=== PATIENT | male | born 1980 ===

== ENCOUNTER 2017-03-22 04:34 | Emergency (ER) | payer OTHER, BC ==
--- NOTE | 2017-03-22 04:41 | EDM.PDOC ---
ED HPI GENERAL MEDICAL PROBLEM - General Chief Complaint: Laceration Stated Complaint: cut off tips of ring and little finger Time Seen by Provider: 03/22/17 04:34 Source of Information: Reports: Patient History Limitations: Reports: No Limitations - History of Present Illness INITIAL COMMENTS - FREE TEXT/NARRATIVE: This patient is a 37 year old male that presents to the ER. Patient reports he was working at the [employer] this morning when he amputated his distal 4th and 5th phalanges of the right hand. The patient got them amputated using the dry chain sprocket. Patient denies any other injuries. Patient has sensation at the digits with numbness and throbbing per patient. Patient is able to have flexion and extension of the digits portion that remains. Onset: Today Onset Date: 03/22/17 Onset Time: 04:00 Location: Reports: Upper Extremity, Right Severity: Moderate Improves with: Reports: None Worsens with: Reports: None Associated Symptoms: Reports: No Other Symptoms. Denies: Confusion, Chest Pain , Cough, cough w sputum, Diaphoresis, Fever/Chills, Headaches, Loss of Appetite , Malaise, Nausea/Vomiting, Rash, Seizure, Shortness of Breath, Syncope, Weakness Right 5-Little finger Pain Score (Numeric/FACES): 3 - Related Data Allergies Allergy/AdvReac Type Severity Reaction Status Date / Time No Known Allergies Allergy Verified 03/22/17 04:36 Home Meds: Home Meds LORazepam 5 mg PO DAILY 03/22/17 [History] Metoprolol Succinate/HCTZ [Metoprolol ER-Hctz 50-12.5 mg] 1 each PO DAILY [History] ED ROS GENERAL - Review of Systems Review Of Systems: See Below Constitutional: Reports: No Symptoms HEENT: Reports: No Symptoms Respiratory: Reports: No Symptoms Cardiovascular: Reports: No Symptoms Endocrine: Reports: No Symptoms GI/Abdominal: Reports: No Symptoms : Reports: No Symptoms Musculoskeletal: Reports: Other (right 4th, 5th amputations. ) Skin: Reports: Wound (right 4th, 5th digit amputations) Neurological: Reports: No Symptoms Psychiatric: Reports: No Symptoms Hematologic/Lymphatic: Reports: No Symptoms Immunologic: Reports: No Symptoms ED EXAM, SKIN/RASH Exam: See Below Exam Limited By: No Limitations General Appearance: Alert, WD/WN, No Apparent Distress Respiratory/Chest: No Respiratory Distress, Lungs Clear, Normal Breath Sounds, No Accessory Muscle Use Cardiovascular: Normal Peripheral Pulses, Regular Rate, Rhythm, No Edema, No Gallop, No JVD, No Murmur, No Rub Peripheral Pulses: 2+: Radial (R) Extremities: Normal Range of Motion, Normal Capillary Refill (except for 4th and 5th right digits. ), Other (amputations to the right 4th and 5th digits. both amputated to the entire distal of 5th and 3/4th distal phalanges. Patient reports numbness wth some throbbing at the fingers. Motor intact, sensation intact. ) Skin: Warm, Dry, Normal Color, No Rash, Mottled (right 4th, 5th digits amputations. Not actively bleeding. ) Location, Skin: Upper Extremity, Right ED SKIN PROCEDURES - Additional/Other Procedure(s) Other (Free Text) Procedure(s): I used hibiclens to the wound spraying, then rinsed in NS. Telfa nonstick dressing applied, then finger splints, then several 4x4s, then 2 Kerlex to dressing. Bleeding controlled with this pressure dressing. Stable. Fingers put in nonstick sponge, soaked in NS, then placed in bag, then on ice by RN. At hand surgeon request. Course - Vital Signs Last Recorded V/S: Last Vital Signs Temp 97.6 F 03/22/17 04:45 Pulse 100 03/22/17 04:45 Resp 18 03/22/17 04:45 BP 189/122 H 03/22/17 04:45 Pulse Ox 96 03/22/17 04:45 - Orders/Labs/Meds Orders: Active Orders 24 hr Category Date Time Status Hand Comp Min 3V Rt [CR] Stat Exams 03/22/17 04:39 Taken Meds: Medications Discontinued Medications Generic Name Dose Route Start Last Admin Trade Name Freq PRN Reason Stop Dose Admin Cefazolin Sodium 1 gm 03/22/17 04:49 03/22/17 05:28 Ancef IVPUSH 03/22/17 04:50 1 gm ONETIME ONE Administration Morphine Sulfate 4 mg 03/22/17 05:25 03/22/17 05:39 Morphine IVPUSH 03/22/17 05:26 4 mg ONETIME ONE Administration Morphine Sulfate 4 mg 03/22/17 06:12 Morphine IVPUSH 03/22/17 06:13 ONETIME ONE Ondansetron HCl 4 mg 03/22/17 05:25 03/22/17 05:39 Zofran IVPUSH 03/22/17 05:26 4 mg NOW STA Administration Ondansetron HCl 4 mg 03/22/17 06:12 Zofran IVPUSH 03/22/17 06:13 NOW STA - Radiology Interpretation Free Text/Narrative:: Right hand xray: Amputation right 5th digit right at the distal/indeterminate phalange, and 4th phalange at the proximal 3/4 distal phalange. No dislocations. - Re-Assessments/Exams Free Text/Narrative Re-Assessment/Exam: 03/22/17 05:28 I have discussed the patient case with Dr. Carrillo the hand surgeon at [facility]. He has accepted the patient. Departure - Departure Time of Disposition: 06:18 Disposition: DC/Tfer to Acute Hospital 02 Condition: Fair Clinical Impression: Amputation of finger Qualifiers: Encounter type: initial encounter Qualified Code(s): S68.119A - Complete traumatic metacarpophalangeal amputation of unspecified finger, initial encounter Fx phalanges, hand-open Qualifiers: Encounter type: initial encounter Qualified Code(s): S62.609B - Fracture of unspecified phalanx of unspecified finger, initial encounter for open fracture - Discharge Information Referrals: PCP,None [Primary Care Provider] - Forms: ED Department Discharge - My Orders Last 24 Hours: My Active Orders 03/22/17 04:39 Hand Comp Min 3V Rt [CR] Stat - Assessment/Plan Last 24 Hours: My Active Orders 03/22/17 04:39 Hand Comp Min 3V Rt [CR] Stat Plan: PLEASE SEE RN NOTE FOR PFSH. This patient is being transferred to [facility]. The patient has been accepted by hand surgeon Dr Carrillo. The patient has been explained the risks and benfits. The risks with transfer are mvc, worsening of pain, worsening of condition. The benefits of trasnfer are specialty hand surgeon care, surgical intervention. The beneftis of staying in [place] are close to home and work. The risks of staying in [place] are infection, lack of hand surgeon, improper healing.
[2017-03-22] MEDS ORDERED: ceFAZolin 1 GM Vial IVPUSH ONE (04:49)
[2017-03-22 05:01] VITALS: BP 189/122
[2017-03-22] MEDS ORDERED: Ondansetron 4 MG/2 ML SDV IVPUSH STA ×2 (05:25→06:12)
[2017-03-22] MEDS ORDERED: Morphine 4 MG/ML Syringe IVPUSH ONE ×2 (05:25→06:12)
== END 2017-03-22 06:10 ==
LOC: CC.ED 04:34
DX: S68.116A Complete traumatic metacarpophalangeal amputation of right little finger, initial encounter (principal); S68.114A Complete traumatic metacarpophalangeal amputation of right ring finger, initial encounter; Z79.899 Other long term (current) drug therapy; W23.0XXA Caught, crushed, jammed, or pinched between moving objects, initial encounter; Y99.0 Civilian activity done for income or pay
CPT/HCPCS: 73130; 96374; 96375; 96376; 99284; J0690; J2270; J2405

== ENCOUNTER 2020-08-03 09:43 | Emergency (ER) | payer BC ==
[2020-08-03 10:33] LABS: CHLORIDE,CL 100 mEq/L (98-106); SODIUM,NA 138 mEq/L (136-145)
[2020-08-03 10:35] LABS: PTT,PARTIAL THROMBOPLSTIN TIME 26.5 SEC (23.2-32.3)
[2020-08-03] MEDS ORDERED: Iopamidol 755 Mg/ML 100 ML Bottle IVPUSH ONE (10:48)
[2020-08-03 11:15] VITALS: BP 143/82; PULSE 102
--- NOTE | 2020-08-03 11:41 | EDM.PDOC ---
ED HPI GENERAL MEDICAL PROBLEM - General Chief Complaint: Respiratory Problem Stated Complaint: SOB Time Seen by Provider: 08/03/20 10:12 Source of Information: Reports: Patient History Limitations: Reports: No Limitations - History of Present Illness INITIAL COMMENTS - FREE TEXT/NARRATIVE: Ian is a 40 year old male who presents to ER with complaints of increasing shortness of breath. Is on day 9 of COVID 19. States has noted increasing activity intolerance. Initially infection started with fever/chills, nausea and cough. Has now experienced nausea/vomiting/diarrhea, fever and chills and loss of taste and smell. Cough is frequent, nonproductive. Tires easily, feels very fatigued. No chest pain but feels a burning sensation in his chest. Onset: Gradual Duration: Day(s):, Getting Worse Location: Reports: Chest Severity: Moderate Improves with: Reports: Rest Worsens with: Reports: Movement Associated Symptoms: Reports: Cough, Fever/Chills, Loss of Appetite, Nausea/Vomiting, Shortness of Breath, Weakness. Denies: Confusion, Chest Pain Sternum Pain Score (Numeric/FACES): 7 - Related Data Allergies Allergy/AdvReac Type Severity Reaction Status Date / Time No Known Allergies Allergy Verified 03/22/17 04:36 Home Meds: Home Meds Metoprolol Succinate/HCTZ [Metoprolol ER-Hctz 50-12.5 mg] 1 each PO DAILY 03/22/17 [History] amLODIPine [Norvasc] 5 mg PO DAILY 08/03/20 [History] Past Medical History Cardiovascular History: Reports: Hypertension Musculoskeletal History: Reports: Amputation Other Musculoskeletal History: of ring and pinky finger R hand - Infectious Disease History Infectious Disease History: Reports: None - Past Surgical History Cardiovascular Surgical History: Reports: None Social & Family History - Family History Family Medical History: No Pertinent Family History - Tobacco Use Tobacco Use Status *Q: Never Tobacco User - Caffeine Use Caffeine Use: Reports: Coffee, Soda - Recreational Drug Use Recreational Drug Use: No ED ROS GENERAL - Review of Systems Review Of Systems: See Below Constitutional: Reports: Chills, Malaise, Weakness, Fatigue, Decreased Appetite. Denies: Fever HEENT: Denies: Ear Pain, Rhinitis, Sinus Problem, Throat Pain, Vertigo Respiratory: Reports: Shortness of Breath, Pleuritic Chest Pain, Cough. Denies: Sputum Cardiovascular: Denies: Chest Pain, Edema, Lightheadedness Endocrine: Reports: Fatigue GI/Abdominal: Reports: Diarrhea, Decreased Appetite, Nausea, Vomiting. Denies: Abdominal Pain, Constipation : Reports: No Symptoms Musculoskeletal: Reports: No Symptoms Skin: Reports: No Symptoms Neurological: Reports: Weakness ED EXAM, GENERAL - Physical Exam Exam: See Below Exam Limited By: No Limitations General Appearance: Alert, WD/WN, No Apparent Distress Ears: Normal External Exam, Normal TMs Nose: Normal Inspection, Normal Mucosa, No Blood Throat/Mouth: Normal Inspection, Normal Oropharynx Head: Normocephalic Neck: Normal Inspection, Supple, Non-Tender Respiratory/Chest: No Respiratory Distress, Decreased Breath Sounds Cardiovascular: Regular Rate, Rhythm GI/Abdominal: Normal Bowel Sounds, Soft, Non-Tender Extremities: Normal Inspection, No Pedal Edema Neurological: Alert, Oriented Skin Exam: Warm, Dry Course - Vital Signs Last Recorded V/S: Last Vital Signs Temp 96.7 F L 08/03/20 09:50 Pulse 102 H 08/03/20 11:15 Resp 18 08/03/20 11:15 BP 143/82 H 08/03/20 11:15 Pulse Ox 93 L 08/03/20 11:15 - Orders/Labs/Meds Orders: Active Orders 24 hr Category Date Time Status EKG Documentation Completion [RC] STAT Care 08/03/20 09:56 Active Ang Chest [CT] Stat Exams 08/03/20 10:43 Taken CXR [Chest 2V] [CR] Stat Exams 08/03/20 09:56 Taken Labs: Laboratory Tests 08/03/20 08/03/20 08/03/20 Range/Units 09:56 09:56 09:56 WBC 6.3 (5.0-10.0) 10^3/uL RBC 5.45 (4.50-6.00) 10^6/uL Hgb 15.5 (14.0-18.0) g/dL Hct 45.1 (40.0-54.0) % MCV 82.8 (82.0-94.0) fL MCH 28.4 (27.0-32.0) pg MCHC 34.4 (33.0-38.0) g/dL RDW Coeff of Mark 13.4 (11.0-15.0) % Plt Count 246 (150-400) 10^3/uL Neut % (Auto) 74.0 (35-85) % Lymph % (Auto) 14.2 (10-55) % [place] % (Auto) 11.8 (0-16) % Eos % (Auto) 0 (0-5) % Baso % (Auto) 0 (0-3) % Neut # (Auto) 4.63 (1.80-7.00) 10^3/uL Lymph # (Auto) 0.89 L (1.00-4.80) 10^3/uL [place] # (Auto) 0.74 (0.00-0.80) 10^3/uL Eos # (Auto) 0.00 (0.00-0.45) 10^3/uL Baso # (Auto) 0.00 10^3/uL PT 10.4 (9.7-12.3) SEC INR 1.03 (0.92-1.18) APTT 26.5 (23.2-32.3) SEC D-Dimer, Quantitative 0.98 H (0.00-0.50) Sodium 138 (136-145) mEq/L Potassium 3.8 (3.5-5.0) mEq/L Chloride 100 (98-106) mEq/L Carbon Dioxide 27 (21-32) mmol/L BUN 10 (7-18) mg/dL Creatinine 1.1 (0.7-1.3) mg/dL Est Cr Clr Drug Dosing 94.02 mL/min Estimated GFR (MDRD) > 60 (>=60) mL/min Glucose 108 H (75-99) mg/dL Lactic Acid (0.4-2.0) mmol/L Calcium 9.2 (8.4-10.1) mg/dL Total Bilirubin 0.7 (0.0-1.0) mg/dL AST 31 (15-37) U/L ALT 50 (12-78) U/L Alkaline Phosphatase 72 (46-116) U/L Creatine Kinase 216 (35-232) U/L Troponin I < 0.017 (0.00-0.06) ng/mL NT-Pro-B Natriuret Pep 53 (0-1000) pg/mL Total Protein 8.3 H (6.4-8.2) g/dL Albumin 3.7 (3.4-5.0) g/dL 08/03/20 Range/Units 09:56 WBC (5.0-10.0) 10^3/uL RBC (4.50-6.00) 10^6/uL Hgb (14.0-18.0) g/dL Hct (40.0-54.0) % MCV (82.0-94.0) fL MCH (27.0-32.0) pg MCHC (33.0-38.0) g/dL RDW Coeff of Mark (11.0-15.0) % Plt Count (150-400) 10^3/uL Neut % (Auto) (35-85) % Lymph % (Auto) (10-55) % [place] % (Auto) (0-16) % Eos % (Auto) (0-5) % Baso % (Auto) (0-3) % Neut # (Auto) (1.80-7.00) 10^3/uL Lymph # (Auto) (1.00-4.80) 10^3/uL [place] # (Auto) (0.00-0.80) 10^3/uL Eos # (Auto) (0.00-0.45) 10^3/uL Baso # (Auto) 10^3/uL PT (9.7-12.3) SEC INR (0.92-1.18) APTT (23.2-32.3) SEC D-Dimer, Quantitative (0.00-0.50) Sodium (136-145) mEq/L Potassium (3.5-5.0) mEq/L Chloride (98-106) mEq/L Carbon Dioxide (21-32) mmol/L BUN (7-18) mg/dL Creatinine (0.7-1.3) mg/dL Est Cr Clr Drug Dosing mL/min Estimated GFR (MDRD) (>=60) mL/min Glucose (75-99) mg/dL Lactic Acid 1.2 (0.4-2.0) mmol/L Calcium (8.4-10.1) mg/dL Total Bilirubin (0.0-1.0) mg/dL AST (15-37) U/L ALT (12-78) U/L Alkaline Phosphatase (46-116) U/L Creatine Kinase (35-232) U/L Troponin I (0.00-0.06) ng/mL NT-Pro-B Natriuret Pep (0-1000) pg/mL Total Protein (6.4-8.2) g/dL Albumin (3.4-5.0) g/dL Meds: Medications Discontinued Medications Generic Name Dose Route Start Last Admin Trade Name Malaika PRN Reason Stop Dose Admin Iopamidol 100 ml 08/03/20 10:48 08/03/20 11:08 Isovue-370 (76%) IVPUSH 08/03/20 10:49 100 ml ONETIME ONE Administration - Re-Assessments/Exams Free Text/Narrative Re-Assessment/Exam: 08/03/20 1110 Labs are reviewed. D-Dimer is mildly elevated. Chest xray shows infiltrates bilateral. Oxygen sat is 93-94% on room air. With activity does drop to 90%. Will proceed with CTA of chest 1150-CTA of chest is negative for PE. Does show bilateral viral infiltrates due to COVID. Departure - Departure Time of Disposition: 11:49 Disposition: Home, Self-Care 01 Condition: Fair Clinical Impression: COVID-19, Viral pneumonia - Discharge Information *PRESCRIPTION DRUG MONITORING PROGRAM REVIEWED*: No *COPY OF PRESCRIPTION DRUG MONITORING REPORT IN PATIENT ED: No Instructions: Shortness of Breath, Adult, [id number], COVID-19, COVID-19 Frequently Asked Questions Referrals: PCP,None [Primary Care Provider] - Forms: ED Department Discharge Additional Instructions: 1. Rest 2. Push fluids 3. Lie prone (on belly) frequently through day 4. Activity as tolerated, need to ambulate and take frequent deep breaths 5. Dexamethasone 6 mg daily for 5 days 6. Tessalon pearles every 6 hours as needed for cough 7. Return to ER if breathing becomes more labored, more short of breath 8. Call with any questions or concerns. Sepsis Event Note (ED) - Evaluation Sepsis Screening Result: Possible Sepsis Risk - Focused Exam Vital Signs: Vital Signs Temp Pulse Resp BP Pulse Ox 08/03/20 11:15 102 H 18 143/82 H 93 L 08/03/20 09:50 96.7 F L 120 H 19 137/84 95 - My Orders Last 24 Hours: My Active Orders 08/03/20 09:56 EKG Documentation Completion [RC] STAT CXR [Chest 2V] [CR] Stat 08/03/20 10:43 Ang Chest [CT] Stat - Assessment/Plan Last 24 Hours: My Active Orders 08/03/20 09:56 EKG Documentation Completion [RC] STAT CXR [Chest 2V] [CR] Stat 08/03/20 10:43 Ang Chest [CT] Stat
== END 2020-08-03 12:05 | disposition home or self-care (01) ==
LOC: CC.ED 09:43
DX: U07.1 COVID-19 (principal); J12.82 Pneumonia due to coronavirus disease 2019; R79.1 Abnormal coagulation profile; I10 Essential (primary) hypertension; Z79.899 Other long term (current) drug therapy
CPT/HCPCS: 36415; 71046; 71275; 80053; 82550; 83605; 83880; 84484; 85025; 85379; 85610; 85730; 93005; 99285-25; Q9967